=== PATIENT | male | born 1960 | race Caucasian/White ===

== ENCOUNTER 2019-02-27 13:21 | Emergency (ER) | payer OTHER ==
[~2019-02-27] VITALS: Ht 177.8 cm; Wt 78.0 kg
[~2019-02-27 13:21] MED LIST: HYDR-3730 PO
--- NOTE | 2019-02-27 14:38 | ED GI ---
General Chief Complaint: Abdominal/GI Problems Stated Complaint: CONSTIPATION Nursing Triage Note: Pt c/o constipation and possible bowel blockage with mild ABD pain Sepsis Screen: No Definite Risk Source of Information: Patient, Spouse Exam Limitations: No Limitations (JAMIR LÓPEZ STUDENT) History of Present Illness Date Seen by Provider: Feb 27, 2019 Time Seen by Provider: 14:08 Initial Comments 58yo male seen today due to sensation that he is constipated. He discharged from [facility] 4 weeks prior and has felt blocked since. He was there for stem cell infusion following a month of chemotherapy for diffuse B Cell lymphoma 2 weeks prior he got infection in his gut that he cleared with Flaygl and levofloxicin. Four days ago he was seen in [facility] where they ran a CT and a digital rectal exam. The CT showed excess liquid in his bowels but no blockage or infection. He has been having bowel movements with one this morning the consistency of "mud." His sensation is that, "The stool is being pushed to the side of his rectum and not leaving straight." He uses miralax regularly and a suppository last night. Had a "normal" colonoscopy 2 years prior and told to return in 10 years. Denies any pain. (JAMIR LÓPEZ STUDENT) Allergies and Home Medications Allergies Coded Allergies: No Known Drug Allergies (Unverified , 07/02/14) Home Medications Hydrocodone/Acetaminophen 1 Each Tablet, 1-2 EACH PO Q6H Prescribed by: JESSENIA PICKETT on 07/11/14 1528 Patient Home Medication List Home Medication List Reviewed: Yes (JAMIR LÓPEZ STUDENT) Review of Systems Review of Systems Constitutional: no symptoms reported EENTM: No Symptoms Reported Respiratory: No Symptoms Reported Cardiovascular: No Symptoms Reported Gastrointestinal: See HPI Musculoskeletal: no symptoms reported Skin: no symptoms reported Psychiatric/Neurological: No Symptoms Reported Endocrine: No Symptoms Reported Hematologic/Lymphatic: No Symptoms Reported (JAMIR LÓPEZ STUDENT) Past Lvgcypi-Otwgjt-Jtbmdl Hx Past Med/Social Hx: Reviewed and Corrections made (JAMIR LÓPEZ STUDENT) Patient Social History Recent Foreign Travel: No Contact w/Someone Who Travel: No Recent Infectious Disease Expo: No Recent Hopitalizations: Yes Physical Abuse: No Sexual Abuse: No Mistreated: No Fear: No (JAMIR LÓPEZ STUDENT) Immunizations Up To Date Date of Pneumonia Vaccine: Jul 11, 2010 Date of Influenza Vaccine: Mar 06, 2014 (JAMIR LÓPEZ STUDENT) Seasonal Allergies Seasonal Allergies: No (JAMIR LÓPEZ STUDENT) Past Medical History Surgeries: Yes Abdominal Respiratory: No Currently Using CPAP: No Currently Using BIPAP: No Cardiac: No Neurological: No Genitourinary: No Gastrointestinal: No Musculoskeletal: No Endocrine: No HEENT: No Cancer: Yes Did You Recieve Any Treatments: Yes What Type of Treatment Did You: Chemotherapy, Radiation, Surgical Intervention Psychosocial: No Integumentary: No Blood Disorders: No Adverse Reaction/Blood Tranf: No (JAMIR LÓPEZ STUDENT) Physical Exam Vital Signs Vital Signs - First Documented 02/27/19 02/27/19 13:36 15:16 Temp 36.9 Pulse 123 Resp 18 B/P (MAP) 121/83 (96) Pulse Ox 97 (CHENCHO OLIVEIRA MD) Vital Signs Capillary Refill : Less Than 3 Seconds (JAMIR LÓPEZ STUDENT) Height/Weight/BMI Height: 5'11.00" Weight: 199lbs. oz. [id number]; 24.00 BMI Method: General Appearance: WD/WN, no apparent distress Respiratory: lungs clear, normal breath sounds Cardiovascular: regular rate, rhythm, no edema, tachycardia Gastrointestinal: normal bowel sounds, non tender, soft, no organomegaly, no pulsatile mass Extremities: normal range of motion Neurologic/Psychiatric: alert, normal mood/affect, oriented x 3 Skin: normal color, warm/dry (JAMIR LÓPEZ STUDENT) Progress/Results/Core Measures Results/Orders My Orders (CHENCHO OLIVEIRA MD) Vital Signs/I&O 02/27/19 02/27/19 13:36 15:16 Temp 36.9 37.0 Pulse 123 80 Resp 18 18 B/P (MAP) 121/83 (96) 130/70 Pulse Ox 97 (CHENCHO OLIVEIRA MD) Blood Pressure Mean: 96 Departure Impression Primary Impression: Bowel habit changes Disposition: 01 HOME, SELF-CARE Condition: Stable Departure-Patient Inst. Decision time for Depature: 15:02 (CHENCHO OLIVEIRA MD) Patient Instructions: No Instuctions Given Add. Discharge Instructions: You may continue taking MiraLAX (polyethylene glycol) as previously directed. If this is not sufficient, you may increase to twice daily dosing. You may follow-up with your primary care provider or your surgeon/ as previously suggested. Return to the emergency room if you have worsening symptoms. All discharge instructions reviewed with patient and/or family. Voiced understanding. This patient was interviewed and examined by me personally along with CARLOS A Post student. I agree with documentation by CARLOS A student with the following additions and changes: Patient reports being fearful of developing constipation. He had chemotherapy and stem cell treatment at [facility] during an admission January 03. He became constipated during that admission. He now uses MiraLAX daily. Stools have been "mud" consistency. He uses a suppository last night. He feels like he is getting "backed up" despite having bowel movements. He has anxiety about constipation. He had a colonoscopy about 2 years ago which was reportedly clean. He was also seen at [place] recently and had a CT scan. He denies any pain at this time. Gen.: Alert, oriented, no acute distress, well-developed HEENT: Normocephalic and atraumatic, mucous membranes moist Neck: Normal to inspection Heart: Regular rate and rhythm without murmur Lungs: Clear to auscultation bilaterally with normal effort Abdomen: Soft, nondistended, nontender, normal bowel sounds Skin: Warm and dry without rashes Neuropsych: Alert, oriented, no focal deficits, mildly anxious. Patient was offered KUB to evaluate stool burden status. Before this could be done, patient was able to contact his surgeon/ and make a follow-up appointment. He decided not to have the x-ray performed. No diagnostic studies her interventions were performed. (CHENCHO OLIVEIRA MD) JAMIR LÓPEZ STUDENT Feb 27, 2019 14:38 CHENCHO OLIVEIRA MD Feb 27, 2019 15:03
[2019-02-27 15:16] VITALS: BP 130/70
--- NOTE | 2019-02-27 17:54 | NUR ---
THE PT RECEIVED A PHONE CALL FROM HIS DR. HE WANTED TO LEAVE AND GO SEEN HIS DR. HE WAS NOT UNHAPPY. HE STATED THAT WE WERE OK AND NO PROBLEMS WITH THE HOSPITAL, OR STAFF.
== END 2019-02-27 15:23 | disposition home or self-care (01) ==
LOC: EDUNIT# 13:21 → ER 13:22
DX: R19.4 Change in bowel habit (principal); Z85.72 Personal history of non-Hodgkin lymphomas
CPT/HCPCS: 99282